=== PATIENT | male | born 1965 | race Caucasian/White ===

== ENCOUNTER 2017-02-12 06:53 | Inpatient (IN) | payer OTHER ==
[2017-02-12] VITALS (20 sets, daily range): BP systolic 118–170; BP diastolic 80–101
[~2017-02-12] VITALS: Ht 177.8 cm; Wt 80.0 kg
--- NOTE | ~2017-02-12 | EKG ---
[address] [place] [address] ELECTROCARDIOGRAM REPORT Name: MICHELLEHELDER Michael Room #: 238-P ADM IN M.R.#: [id number] Admission: 02/12/17 Attend Phys: David Grover Discharge: Date of : 65 Report #: [id number] THIS REPORT FOR: //name// [facility] Test Date: 2017-02-12 Test Time: 12:51:57 Pat Name: HELDER MARTINEZ Department: Room: 238 P Gender: M Orchard Worker: GABRIELA : 1965 Requested By: Mu Melgoza Order Number: [id number] MD: Go Osullivan Measurements Intervals [place] Rate: 106 P: 15 OK: 170 QRS: -11 QRSD: 78 T: -8 QT: 337 QTc: 448 Interpretive Statements Sinus tachycardia Abnormal R-wave progression, early transition Borderline T abnormalities, inferior leads Baseline wander in lead(s) I,II No previous ECG available for comparison Electronically Signed On 02-13-2017 9:51:16 CDT by Go Osullivan [email or web address] <ELECTRONICALLY SIGNED> By: Go Osullivan MD, [facility] 02/13/17 0951 1251 1251 Go Osullivan MD, [facility] /EPI
--- NOTE | ~2017-02-12 | P ---
[facility] [place] [address] PROCEDURE REPORT Name: HELDER MARTINEZ Room #: 463-P [facility] IN M.R.#: [id number] Admission: 02/12/17 Attend Phys: David Grover Discharge: 02/14/17 Date of : 65 Report #: [id number] THIS REPORT FOR: //name// CC: David Reyes [facility] physician/PCP Walter Pedraza MD DATE OF SERVICE: 02/12/2017 PROCEDURE PERFORMED: Upper endoscopy. HISTORY OF PRESENT ILLNESS: The patient is a 51-year-old male who presents today for an EGD and colonoscopy as an outpatient. He has a known history of liver disease and alcohol abuse. He had an upper GI bleed in November and was admitted to [facility]. Apparently, upper endoscopy at that time showed gastric polyps with a large polyp in the fundus. He denies any obvious bleeding at this time. Plan is for EGD and colonoscopy. DESCRIPTION OF PROCEDURE: The risks and benefits of the procedure were explained to the patient, those risks including but not limited to bleeding, perforation, the risk of sedation. He understood these risks and gave informed consent. Sedation was given using propofol initially by anesthesia. Next, using a standard [employer] upper endoscope, the scope was placed in the patient's mouth and advanced under direct vision through the esophagus into the stomach. At this point, the patient began coughing and retching somewhat. The esophagus appeared normal; however, as I advanced into the fundus, there was an obvious polypoid lesion within the gastric fundus and it was also associated with bright red blood. At this point, the scope was then withdrawn and the patient was intubated. I re-advanced the scope into the stomach. Multiple washings and aspirations were performed. It does appear that the patient has multiple gastric polyps with the largest one being in the fundus and this is where the bleeding recently occurred. There was a small amount of bright red blood, but also a clot adherent to the apparent polyp. I did not see any obvious esophageal varices or gastric varices, although this could be a possibility. Because of the patient's history of alcohol abuse and liver disease and the broad base of the polyp, I did not want to remove it today. I did not know the patient's INR and platelet count as well. Therefore, plan is to admit the patient. Again, several other polyps were noted in the stomach. The pylorus was normal and patent. The duodenal bulb, first and second portion were all normal. At this point, the scope was then withdrawn and the procedure terminated. IMPRESSION: 1. Gastric polyps, most likely with the largest one being in the fundus. There is evidence of active bleeding recently. 2. No obvious esophageal varices or gastric varices. [facility] [address] [place] [address] PROCEDURE REPORT Name: HELDER MARTINEZ Room #: 463-P DIS IN M.R.#: [id number] Admission: 02/12/17 Attend Phys: David Grover Discharge: 02/14/17 Date of : 65 Report #: [id number] RECOMMENDATIONS: 1. Plan will be to admit the patient today. 2. We will proceed with a CT scan of the abdomen and pelvis, obtain labs and monitor his hemoglobin closely. 3. Likely recommend an endoscopic ultrasound at some point for further evaluation and possible removal at that time of the gastric polyps. Thank you for allowing me to participate in his care.6 <ELECTRONICALLY SIGNED> By: David Reyes MD 02/15/17 1705 0925 1038 David Reyes MD /nt
--- NOTE | ~2017-02-12 | H ---
[facility] [place] [address] HISTORY AND PHYSICAL Name: HELDER MARTINEZ Room #: 463-P [facility] IN M.R.#: [id number] Admission: 02/12/17 Attend Phys: David Grovre Discharge: 02/14/17 Date of : 65 Report #: [id number] THIS REPORT FOR: //name// CC: David Reyes [facility] physician/PCP Walter Pedraza MD DATE OF SERVICE: 02/12/2017 HISTORY OF PRESENT ILLNESS: The patient is a 51-year-old male who presented today for an outpatient EGD and colonoscopy. I had seen the patient before, with his last visit in 03/2015. He has a history of alcohol abuse and liver disease. He apparently had hospitalization at [facility], in November of this year, in which he presented with hematemesis and anemia. The EGD at that time showed a large polypoid lesion apparently in the fundus and he was referred to have it removed. He denies any recent hematemesis. He denies any melanotic stools. No chest pain or shortness breath. No fevers or chills. The patient does take omeprazole on a daily basis. He continues to drinking alcohol on a regular basis. PAST MEDICAL HISTORY: History of alcohol abuse and elevated liver function test, possible gastric polyp, hypercholesterolemia, asthma, history of anxiety, previous history of cholecystectomy, hernia repair, prostate surgery. MEDICATIONS ON ADMISSION: Albuterol, Vistaril, omeprazole. ALLERGIES: SULFA, ERYTHROMYCIN. REVIEW OF SYSTEMS: As per HPI. FAMILY HISTORY: Negative for colon cancer. SOCIAL HISTORY: He has a history of alcohol abuse as described above. Denies any tobacco use. PHYSICAL EXAMINATION: VITAL SIGNS: The patient is afebrile. Vital signs are stable. GENERAL: He is alert and oriented. He is somewhat tremulous. He is in no acute distress. HEENT: Sclerae nonicteric. Oropharynx clear. NECK: Supple, without lymphadenopathy. CARDIOVASCULAR: Regular rate and rhythm. CHEST: Clear to auscultation bilaterally. ABDOMEN: Soft, nontender, nondistended, normoactive bowel sounds. EXTREMITIES: No cyanosis, clubbing or edema. [facility] [address] [place] [address] HISTORY AND PHYSICAL Name: HELDER MARTINEZ Room #: 463-P [facility] IN .R.#: [id number] Admission: 02/12/17 Attend Phys: David Grover Discharge: 02/14/17 Date of : 65 Report #: [id number] LABORATORY DATA: There are no new labs as of yet. ASSESSMENT AND PLAN: The patient with a history of alcohol abuse and apparently with gastric polyps, presented today for esophagogastroduodenoscopy and colonoscopy for further evaluation, with a hospitalization apparently at [facility] in November. I proceeded with an upper endoscopy today. As I advanced the scope into the esophagus, the patient was coughing and retching. The esophagus appeared normal; however, as I advanced the scope into the stomach, there was an obvious lesion and there was evidence of bright red blood. At this point, the scope was then withdrawn, and the patient was intubated. I then proceeded with advancing the scope into the stomach, after intubation. There does appear to be multiple gastric polyps, with the largest being in the gastric fundus. There was a clot adherent to this area. I did not see any obvious gastric varices or esophageal varices. Due to the broad base of this polyp, I did not want to remove it at this time, plus I did not have any coags on the patient. With his history of liver disease, he may have low platelets or elevated INR. Therefore, at this point, I would recommend admitting the patient for further evaluation. We will proceed with a CT scan of the abdomen and pelvis and then likely recommend an endoscopic ultrasound to further evaluate this polypoid lesion in his fundus and consider removal at that point. Thank you for allowing me to participate in his care. <ELECTRONICALLY SIGNED> By: David Reyes MD 02/15/17 1705 0920 0952 David Reyes MD /nt
[~2017-02-12 06:53] MED LIST: MULTIVITAMINS1 EAC7 PO; OMEPRAZOLE40 MG PO; VENTOLIN HFA 1818 GM INH; VISTARIL 25 MG25 M1 PO
[2017-02-12 12:58] LABS: HEMATOCRIT 41.1 % (42.0-52.0); HEMOGLOBIN 13.7 gm/dL (14.0-18.0); MCH 31.6 pg (26.0-34.0); MCHC 33.3 g/dL (28.0-37.0); RBC 4.33 mil/uL (4.50-6.00); RDW 13.9 % (10.5-14.5); WBC 7.4 thou/uL (4.0-11.0)
[2017-02-12 13:09] LABS: CREATININE 0.7 mg/dL (0.7-1.3); POTASSIUM 3.8 mmol/L (3.5-5.1)
[2017-02-12 13:13] LABS: MAGNESIUM 1.6 mg/dL (1.8-2.4); PHOSPHORUS 4.4 mg/dL (2.5-4.9)
[2017-02-12 13:20] LABS: INR 1.1; PROTIME 11.4 Seconds (9.3-11.4)
[2017-02-12 18:10] LABS: FREE T4 1.93 ng/dL (0.82-1.77)
[2017-02-12 18:47] LABS: AMP/METHAMP Negative (Negative); BARBITURATES Negative (Negative); BENZODIAZEPINES POSITIVE (Negative); COCAINE Negative (Negative); METHADONE Negative (Negative); OPIATES Negative (Negative); PCP Negative (Negative); THC Negative (Negative)
[2017-02-13] VITALS (16 sets, daily range): BP systolic 127–165; BP diastolic 80–102
[2017-02-13 04:56] LABS: HEMATOCRIT 37.9 % (42.0-52.0); HEMOGLOBIN 12.6 gm/dL (14.0-18.0); MCH 31.6 pg (26.0-34.0); MCHC 33.2 g/dL (28.0-37.0); MCV 95.4 fL (80.0-100.0); RBC 3.97 mil/uL (4.50-6.00); RDW 13.5 % (10.5-14.5); WBC 5.3 thou/uL (4.0-11.0)
[2017-02-13 05:05] LABS: CALCIUM 8.6 mg/dL (8.5-10.1); CREATININE 0.6 mg/dL (0.7-1.3); MAGNESIUM 1.7 mg/dL (1.8-2.4); POTASSIUM 3.3 mmol/L (3.5-5.1)
[2017-02-13 09:46] LABS: MAGNESIUM 1.7 mg/dL (1.8-2.4); POTASSIUM 3.8 mmol/L (3.5-5.1)
[2017-02-14 04:38] LABS: HEMATOCRIT 35.9 % (42.0-52.0); MCH 31.7 pg (26.0-34.0); MCHC 33.4 g/dL (28.0-37.0); RBC 3.78 mil/uL (4.50-6.00); RDW 13.5 % (10.5-14.5); WBC 5.2 thou/uL (4.0-11.0)
[2017-02-14 04:45] LABS: CALCIUM 8.8 mg/dL (8.5-10.1); CREATININE 0.7 mg/dL (0.7-1.3); POTASSIUM 3.5 mmol/L (3.5-5.1)
[2017-02-14 04:55] VITALS: BP 142/90
[2017-02-14 08:40] VITALS: BP 143/88
[2017-02-14 12:14] VITALS: BP 128/85
[2017-02-14] MEDS ORDERED: VITAMIN B-1100 M2 PO (12:43)
[2017-02-14] MEDS ORDERED: BUSPIRONE HCL10 MG PO (12:43)
[2017-02-14] MEDS ORDERED: CLONIDINE0.1 PO (12:43)
[2017-02-14] MEDS ORDERED: ATIVAN0.5 MG PO (12:43)
[2017-02-14 12:52] VITALS: BP 128/85
[2017-02-14 13:17] VITALS: BP 128/85
== END 2017-02-14 14:05 | disposition home or self-care (01) | DRG 378 ==
LOC: GI 06:53 → TBA 10:38 → GI 10:41 → ICU 10:41 → GI 11:58 → 4W 02-13 12:32
PROVIDERS: Hospitalist; Specialist
PROC: 0DJD8ZZ Inspection of Lower Intestinal Tract, Via Natural or Artificial Opening Endoscopic (ICD-10-PCS; principal; 2017-02-12)
PROC: 0DJ08ZZ Inspection of Upper Intestinal Tract, Via Natural or Artificial Opening Endoscopic (ICD-10-PCS; principal; 2017-02-12)
DX: K92.2 Gastrointestinal hemorrhage, unspecified (principal); F10.239 Alcohol dependence with withdrawal, unspecified; E78.00 Pure hypercholesterolemia, unspecified; J45.909 Unspecified asthma, uncomplicated; F41.9 Anxiety disorder, unspecified; K70.30 Alcoholic cirrhosis of liver without ascites; I11.9 Hypertensive heart disease without heart failure; K63.5 Polyp of colon; Z79.899 Other long term (current) drug therapy; Z90.49 Acquired absence of other specified parts of digestive tract; Z88.1 Allergy status to other antibiotic agents; Z88.2 Allergy status to sulfonamides
CPT/HCPCS: 10045; 10078; 62110; 70005